=== PATIENT | female | born 1965 | race Caucasian/White ===

== ENCOUNTER 2024-07-14 08:20 | Outpatient (CLI) | payer SELFPAY ==
--- NOTE | 2024-07-14 08:24 | CT_ITS ---
WS: [id number] CT CALCIUM SCORE REASON FOR VISIT: HYPERTENSION; Coronary artery disease risk assessment COMPARISON: None TECHNIQUE: Noncontrast coronary CT in combination with quantitative analysis performed on a separate workstation were used to determine CACS (Agatston score) TOTAL EXAM DOSE: 45.12 mGy.cm ECG GATING: Prospective SCAN RANGE: Pulmonary artery bifurcation to Inferior aspect of heart COMPLICATIONS: None FINDINGS: Technical Quality/Examination Quality: Good Limitaiton: None OVERALL SCORES Total calcium score: 90 Total volume score: 77 mm3 Percentile: 75-90% ARTERY SCORES Left main coronary artery: 39 Left anterior descending artery: 50 Left circumflex artery: N/A Right coronary artery: 1 OTHER FINDINGS: Mediastinum: Normal. Thoracic aorta: Normal. Lungs: 6 mm pleural nodule along the LEFT fissure. Upper Abdomen: Tiny esophageal hiatal hernia. MINIMAL: 1-10 MILD: 11-100 MODERATE: 101-400 SEVERE:>400 CT/CT heart w calcium score 41291 IMPRESSION: 1. Mild coronary artery disease at the upper end of the range. 2. Total calcium score 90 between the 75th and 90th percentile for females bet ween the ages of 55 and 59. GRADING OF CORONARY ARTERY DISEASE (BASED ON TOTAL CALCIUM SCORE) NO EVIDENCE OF CAD: 0 calcium score
== END 2024-07-14 08:21 | disposition home or self-care (01) ==
LOC: RAD 08:21
PROVIDERS: Visit Provider Family Medicine
DX: I25.10 Atherosclerotic heart disease of native coronary artery without angina pectoris (principal); I10 Essential (primary) hypertension
CPT/HCPCS: 75571